=== PATIENT | female | born 1960 | race Caucasian/White ===

== ENCOUNTER 2017-11-07 07:03 | Day surgery (SDC) | payer OTHER ==
[~2017-11-07] VITALS: Ht 167.6 cm; Wt 55.8 kg
[2017-11-07 07:21] VITALS: BP 137/93
[2017-11-07 09:22] VITALS: BP 117/68
== END 2017-11-07 10:20 | disposition home or self-care (01) ==
LOC: GI 07:03
PROVIDERS: Internal Medicine Gastroenterology
PROC: 0DJD8ZZ Inspection of Lower Intestinal Tract, Via Natural or Artificial Opening Endoscopic (ICD-10-PCS; principal; 2017-11-07 07:30)
DX: K52.9 Noninfective gastroenteritis and colitis, unspecified (principal)
CPT/HCPCS: 45378; J1200; J1610; J2250; J2310; J3010; J3490